=== PATIENT | female | born 1980 | race Caucasian/White ===

== ENCOUNTER 2018-04-14 12:40 | Emergency (ER) | payer OTHER ==
--- NOTE | 2018-04-14 12:58 | EDPHY ---
H & P Stated Complaint: anxiety Time Seen by Provider: 04/14/18 12:48 HPI/ROS: Chief Complaint: Anxiety, heart palpitations, numbness in hands and feet HPI: 38-year-old woman has a history of anxiety and panic attacks. She has been off medications for these for the last 2 years. She had a pedicure 4 days ago. Since that time it has been getting redness and irritation itching of both her feet. She is getting concerned that she might be developing an infection. She actually had an appointment to see her doctor this morning but became increasingly anxious concerned about the possibility of infection. Her heart started pounding. She started breathing rapidly. She felt numbness in her hands and feet which also began cramping. Also some numbness around her mouth. She felt that she could drive so she called 911. EMS gave her 2 mg of Versed in her IV. She is not feeling improved. No shortness of breath. No lightheadedness or fainting. Symptoms feel exactly like her prior panic attacks. ROS: 10 point Review of Systems is negative except as noted in the HPI. PMH: Anxiety Social History: No smoking, occasional alcohol, occasional marijuana Family History: non-contributory Physical Exam: Gen: Awake, Alert, No Distress, anxious, tearful HEENT: Nose: no rhinorrhea Eyes: PERRLA, EOMI Mouth: Moist mucosa Neck: Supple, no JVD Chest: nontender, lungs clear to auscultation Heart: S1, S2 normal, no murmur Abd: Soft, non-tender, no guarding Back: no CVA tenderness, no midline tenderness Ext: no edema, non-tender, bilateral toes have some mild erythema consistent with possible early contact dermatitis versus chemical dermatitis. Not warm to touch. Skin: no rash Neuro: CN II-XII intact, Sensation grossly intact, Strength 5/5 in bilateral upper and lower extremities - Personal History LMP (Females 10-55): 22-28 Days Ago Current Tetanus/Diphtheria Vaccine: Unsure Current Tetanus Diphtheria and Acellular Pertussis (TDAP): Unsure - Medical/Surgical History Hx Asthma: No Hx Chronic Respiratory Disease: No Hx Diabetes: No Hx Cardiac Disease: No Hx Renal Disease: No Hx Cirrhosis: No Hx Alcoholism: No Hx HIV/AIDS: No Hx Splenectomy or Spleen Trauma: No Other PMH: anxiety - Social History Smoking Status: Never smoked Constitutional: Initial Vital Signs Temperature (C) 37.1 C 04/14/18 12:44 Heart Rate 63 04/14/18 12:44 Respiratory Rate 14 04/14/18 12:44 Blood Pressure 114/77 04/14/18 12:44 O2 Sat (%) 97 04/14/18 12:44 O2 Delivery Mode Room Air Allergies/Adverse Reactions: No Known Allergies Allergy (Unverified 04/14/18 12:49) Home Medications: Medication Instructions Recorded NK [No Known Home Meds] 04/14/18 Departure - Departure Disposition: Home, Routine, Self-Care Clinical Impression: Anxiety reaction Condition: Good Instructions: Anxiety (ED) Additional Instructions: You may take Benadryl for the itching in your feet, this may also help with your symptoms anxiety. Follow up with primary care physician at [facility] in 2-3 days for re-evaluation of her feet also to discuss possible treatment for underlying anxiety. Return to the emergency department for chest pain, shortness of breath, fainting , worsening rash, fevers, chills, or any other concerns. Referrals: [facility] ,. [Edm Groups for Call Sched] - As per Instructions
[2018-04-14 13:37] VITALS: BP 116/85
== END 2018-04-14 13:32 | disposition home or self-care (01) ==
DX: F41.1 Generalized anxiety disorder (principal)

== ENCOUNTER 2018-12-19 23:34 | Emergency (ER) | payer OTHER ==
[2018-12-19 23:42] VITALS: BP 112/66
--- NOTE | 2018-12-19 23:44 | EDPHY ---
General Time Seen by Provider: 12/19/18 23:44 Narrative: CLINICAL IMPRESSION: Right ankle sprain ASSESSMENT/PLAN: Patient is a 30-year-old female who presents with complaint of right ankle pain after sustaining a twisting injury while snowboarding. Patient is nontoxic- appearing, she is in no acute distress on arrival. She is tender anterior/ inferior to lateral malleolus without significant edema or deformity. Ankle x- ray revealed no acute bony abnormality- reviewed by myself and Dr. Mcdonald. There was no evidence of acute fracture, dislocation, compartment syndrome or neurovascular compromise. Her history and physical examination is most consistent with right ankle sprain. The patient was placed in an Pasquale wrap and stirrup, she was unable to bear weight so she was provided crutches. CMS intact post splint placement. She declined any need for narcotic pain medication in the emergency department, she will otherwise continue Tylenol and ibuprofen. Patient does not have a primary care provider, I provided a referral for both PCP and Orthopedic surgery. Return precautions discussed-patient to return to the emergency Department for significantly worsening or uncontrolled pain, significant swelling, numbness or tingling of the extremity, paleness or coolness of her digits, fever or for any other concerning symptom. The patient verbalizes understanding and she is in agreement with this plan. DIFFERENTIAL DX: Including but not limited to strain, sprain, contusion, fracture, dislocation ED PROCEDURES: Procedure: Splint placement. A stirrup splint was applied. After application of the splint I returned and re -examined the patient. The splint was adequately applied and the patient's circulation and sensation was intact. CHIEF COMPLAINT: Right ankle pain HPI: Patient is a 38-year-old female with no significant medical history who presents to the emergency department with acute right ankle pain after snowboarding injury earlier this afternoon. Patient reports earlier today she had a fall causing her to twist at her ankles. She felt a pop sensation right lateral ankle and has been experiencing pain since. She was able to walk initially however she is experiencing increased pain as the night has gone on, she took some ibuprofen earlier this evening with mild improvement of her discomfort. She is now unable to put weight on it secondary to pain, pain is radiating slightly up her leg. She denies any foot pain or knee pain. No previous injury or surgery. PAST MEDICAL HISTORY: Denies Pertinent Past Surgical History: Denies Family History: Not contributory Social History: Denies ROS: A full 10 point review of systems was negative except for those mentioned in HPI. PHYSICAL EXAM: General Appearance: Alert, oriented, appropriate, cooperative, NAD, well hydrated, non-toxic appearing, VSS, no hypoxia. Normocephalic, atraumatic. Eyes: PERRLA, EOMI. Conjunctiva pink, no pallor or injection Neck: Supple, no midline pain, FROM. Respiratory: There are no retractions, lungs are clear to auscultation. Cardiac: Regular rate and rhythm, no murmurs or gallops. Gastrointestinal: Abdomen is soft, nontender, bowel sounds normal, no masses/ hernia, no rigidity, guarding or focal peritoneal findings. Skin: Warm, dry, no rashes, no nodules on palpation. Upper Extremities: Intact distal pulses, Full range of motion intact, no tenderness, no ecchymosis or edema Lower Extremities: Left lower extremity unremarkable. Intact distal pulses, No edema, No tenderness, No cyanosis, full range of motion intact. R ankle with tenderness anterior and inferior to lateral malleolus. No medial malleolar tenderness, no navicular tenderness, no tenderness at the base of the 5th metatarsal. No significant or appreciable edema or ecchymosis. 2+DP and PT. Right knee nontender with full rom, no proximal fibular head tenderness. No calf tenderness bilaterally. MEDICAL DECISION MAKING: Patient was seen independently. Secondary supervising physician at time of evaluation was Dr. Mcdonald, he did not evaluate this patient. Diagnosis: Right ankle sprain. New, requires workup Summary: See Assessment and Plan for summary of ED visit Clinical lab tests: Not applicable. Independent visualization of images, tracing, or specimens: Yes, reviewed with Dr. Mcdonald. Decision to obtain medical records or history from someone other than the patient: No Review / Summarize previous medical records: Yes Discussed patient with another provider: Yes Patient Progress: Stable, discharged. - Diagnostics Imaging Results: Imaging Impressions Ankle X-Ray 03/31/19 23:47 Impression: There is no acute osseous abnormality identified. - History Smoking Status: Never smoked - Objective Vital Signs: Initial Vital Signs Heart Rate 76 12/19/18 23:38 Respiratory Rate 18 12/19/18 23:38 Blood Pressure 112/66 12/19/18 23:38 O2 Sat (%) 96 12/19/18 23:38 O2 Delivery Mode Room Air Allergies/Adverse Reactions: Sulfa (Sulfonamide Antibiotics) Allergy (Verified 12/19/18 23:37) Home Medications: Medication Instructions Recorded NK [No Known Home Meds] 04/14/18 Departure - Departure Disposition: Home, Routine, Self-Care Clinical Impression: Ankle sprain Qualifiers: Encounter type: initial encounter Involved ligament of ankle: unspecified ligament Laterality: right Qualified Code(s): S93.401A - Sprain of unspecified ligament of right ankle, initial encounter Condition: Good Instructions: Ankle Sprain (ED), Ankle Stirrup Splint (ED) Additional Instructions: DISCHARGE INSTRUCTIONS FROM YOUR DOCTOR Thank you for visiting our emergency department today. Please keep in mind that discharge from the emergency department does not mean that there is nothing wrong - it simply means that we have not identified an emergency condition that requires further evaluation or treatment in the hospital. You should always plan to follow up with primary care for re-evaluation of your condition in the next 2-3 days. Rest, ice (on and off), elevate the foot and ankle as much possible above the level of the heart to decrease pain and swelling. Wear the Pasquale for compression and splint for comfort. Ambulate as tolerated/ crutches as needed. For pain, Ibuprofen 400 mg every 6 hours. Do not exceed 2400 mg of ibuprofen in 24 hours. Stop taking this if it upsets her stomach. Tylenol 500 mg every 6 hours. Do not exceed 3000 mg in a 24-hour period. Continue your regular medications as prescribed. Return for increased pain or swelling, numbness, tingling or foot or toes, calf pain, paleness or coolness of the foot or toes or for any worsening or worrisome symptoms. People present with illnesses and injuries in different ways, and it is always possible that we have missed something. You may always return for re-evaluation if symptoms worsen or if they are not improving or if you develop new/different symptoms. Again, thank you for choosing our emergency department. We hope that you feel better. Referrals: Tayla Ruiz MD [Medical Doctor] - As per Instructions (Please establish care with a primary care provider if you do not have 1. ) Dk Darnell MD [Medical Doctor] - 5-7 days, if not improved
== END 2018-12-20 01:52 | disposition home or self-care (01) ==
DX: S93.401A Sprain of unspecified ligament of right ankle, initial encounter (principal); V00.311A Fall from snowboard, initial encounter; Y93.23 Activity, snow (alpine) (downhill) skiing, snowboarding, sledding, tobogganing and snow tubing; Y92.828 Other wilderness area as the place of occurrence of the external cause
CPT/HCPCS: L4350